=== PATIENT | female | born 1990 | race Hispanic/Latino ===

== ENCOUNTER 2024-10-18 17:51 | Emergency (ER) | payer SELFPAY ==
[~2024-10-18] VITALS: Ht 147.3 cm; Wt 67.2 kg
[2024-10-18 18:06] VITALS: PULSE 88; RESP 16; TEMP 98.6
[2024-10-18] MEDS: ALBUTEROL/IPRATROPIUM 3 ML NEB NEB ONE (19:22)
[2024-10-18] MEDS: PREDNISONE 20 MG TAB PO ONE (19:22)
[2024-10-18] MEDS ORDERED: VENTOLIN HFA18 GM INH (20:02)
[2024-10-18] MEDS ORDERED: PREDNISONE20 MG PO (20:03)
[2024-10-18 20:17] VITALS: BP 121/92; PULSE 90; RESP 18; TEMP 98.2; O2SAT 98
== END 2024-10-18 20:22 | disposition home or self-care (01) ==
LOC: FSED 18:03
DX: R05.9 Cough, unspecified (principal); J06.9 Acute upper respiratory infection, unspecified; J98.01 Acute bronchospasm; B34.9 Viral infection, unspecified; Z11.52 Encounter for screening for COVID-19
CPT/HCPCS: 0223U; 83518; 87400; 99284; J7512